=== PATIENT | male | born 1945 | race Caucasian/White ===

== ENCOUNTER 2019-06-12 09:45 | Emergency (ER) | payer MEDICARE ==
--- NOTE | 2019-06-12 10:17 | ED ---
General Adult HPI - General Chief complaint: Urogenital Stated complaint: catheter problem Time Seen by Provider: 06/12/19 10:02 Source: patient, RN notes reviewed, old records reviewed Mode of arrival: ambulatory Limitations: no limitations - History of Present Illness Initial comments: 73-year-old male patient with past history of hypertension, benign prostate hypertrophy presents to ED for chief complaint of bladder pain. Patient reports that last Wednesday he had a indwelling catheter place due to urinary retention believed to be from enlarged prostate. Patient reports that last 2 days he has been having spasm discomfort around his bladder region. Also small amount of urine leaking from around insertion of catheter. Reports normal amount of d ischarge from catheter and bag. Denies any other complaints at this time. Systemic: Pt denies fatigue, fever/chills, rash. Pt denies weakness, night sweats, weight loss. Neuro: Pt denies headache, visual disturbances, syncope or pre-syncope. HEENT: Pt denies ocular discharge or irritation, otalgia, rhinorrhea, pharyngitis or notable lymphadenopathy. Cardiopulmonary: Pt denies chest pain, SOB, heart palpitations, dyspnea on exertion. Abdominal/GI: Pt denies abdominal pain, n/v/d. : Pt denies dysuria, burning w/ urination, frequency/urgency. Denies new onset urinary or bowel incontinence. MSK: Pt denies myalgia, loss of strength or function in extremities. Neuro: Pt denies new onset weakness, paresthesias. - Related Data Previous Rx's Medication Instructions Recorded Cephalexin [Keflex] 500 mg PO Q6HR 10 Days #40 cap 06/12/19 Allergies Allergy/AdvReac Type Severity Reaction Status Date / Time No Known Allergies Allergy Verified 06/12/19 09:55 Review of Systems ROS Statement: Those systems with pertinent positive or pertinent negative responses have been documented in the HPI. ROS Other: All systems not noted in ROS Statement are negative. Past Medical History Past Medical History: Hypertension History of Any Multi-Drug Resistant Organisms: None Reported Past Surgical History: No Surgical Hx Reported Past Psychological History: Anxiety Smoking Status: Former smoker Past Alcohol Use History: None Reported Past Drug Use History: None Reported General Exam - General Exam Comments Initial Comments: Constitutional: NAD, AOX3, Pt has pleasant affect. HEENT: NC/AT, trachea midline, neck supple, no lymphadenopathy. Posterior pharyn x non erythematous, without exudates. External ears appear normal, without discharge. Mucous membranes moist. Eyes PERRLA, EOM intact. There is no scleral icterus. No pallor noted. Cardiopulmonary: RRR, no murmurs, rubs or gallops, no JVD noted. Lungs CTAB in anterior and posterior lynn. No peripheral edema. Abdominal exam: Abdomen soft and non-distended. Abdomen non-tender to palpation in all 4 quadrants. Bowel sounds active in LLQ. No hepatosplenomegaly. No ecchymosis Neuro: CN II-XII grossly intact. No nuchal rigidity. No raccon eyes, no diaz sign, no hemotympanum. No cervical spinal tenderness. MSK: No posterior calf tenderness bilaterally, homans sign negative bilaterally. Posterior tibialis and radial pulse +2 bilaterally. Sensation intact in upper and lower extremities. Full active ROM in upper and lower extremities, 5/5 stregnth. gu: Catheter insertion site examined, no erythema. Limitations: no limitations Course Vital Signs 06/12/19 06/12/19 09:50 12:00 Temperature 98.8 F 98.6 F Pulse Rate 108 H 93 Respiratory 18 20 Rate Blood Pressure 152/82 O2 Sat by Pulse 98 95 Oximetry Medical Decision Making - Medical Decision Making 73-year-old male patient with past history of hypertension, benign prostate hypertrophy presents to ED for chief complaint of bladder pain. Patient reports that last Wednesday he had a indwelling catheter place due to urinary retention believed to be from enlarged prostate. Patient reports that last 2 days he has been having spasm discomfort around his bladder region. Also small amount of urine leaking from around insertion of catheter. Reports normal amount of discharge from catheter and bag. Denies any other complaints at this time. Patient vital signs stable, afebrile. Physical exam displayed signs of infection around catheter. Laboratory investigations revealed mild leukocytosis of 12.0, UA displayed hematuria, 78 white blood cells, nitrate positive, large esterase. Patient is a 1 g of Rocephin. The Moseley catheter was removed. Patient was able to spontaneously void after catheter removal. Recommended reinsertion of Moseley catheter and to follow-up, patient refused. Patient will be discharged with antibiotics and will follow up with urology as scheduled on . Will return to ER if ocndition worsens. Case discussed with Dr. Sorenson. - Lab Data Result diagrams: 06/12/19 11:30 06/12/19 11:30 Lab Results 06/12/19 06/12/19 06/12/19 Range/Units 10:30 11:30 11:30 WBC 12.0 H (3.8-10.6) k/uL RBC 4.74 (4.30-5.90) m/uL Hgb 14.9 (13.0-17.5) gm/dL Hct 44.2 (39.0-53.0) % MCV 93.3 (80.0-100.0) fL MCH 31.4 (25.0-35.0) pg MCHC 33.7 (31.0-37.0) g/dL RDW 12.4 (11.5-15.5) % Plt Count 240 (150-450) k/uL Neutrophils % 85 % Lymphocytes % 8 % Monocytes % 4 % Eosinophils % 2 % Basophils % 0 % Neutrophils # 10.2 H (1.3-7.7) k/uL Lymphocytes # 1.0 (1.0-4.8) k/uL Monocytes # 0.5 (0-1.0) k/uL Eosinophils # 0.2 (0-0.7) k/uL Basophils # 0.0 (0-0.2) k/uL Sodium 141 (137-145) mmol/L Potassium 4.5 (3.5-5.1) mmol/L Chloride 104 (98-107) mmol/L Carbon Dioxide 27 (22-30) mmol/L Anion Gap 10 mmol/L BUN 20 (9-20) mg/dL Creatinine 0.70 (0.66-1.25) mg/dL Est GFR (CKD-EPI)AfAm >90 (>60 ml/min/1.73 sqM) Est GFR (CKD-EPI)NonAf >90 (>60 ml/min/1.73 sqM) Glucose 95 (74-99) mg/dL Plasma Lactic Acid Frank (0.7-2.0) mmol/L Calcium 9.7 (8.4-10.2) mg/dL Total Bilirubin 0.6 (0.2-1.3) mg/dL AST 41 (17-59) U/L ALT 26 (4-49) U/L Alkaline Phosphatase 71 (38-126) U/L Total Protein 7.7 (6.3-8.2) g/dL Albumin 4.8 (3.5-5.0) g/dL Urine Color Yellow Urine Appearance Cloudy (Clear) Urine pH 6.0 (5.0-8.0) Ur Specific Jackson 1.019 (1.001-1.035) Urine Protein 1+ H (Negative) Urine Glucose (UA) Negative (Negative) Urine Ketones Negative (Negative) Urine Blood Moderate H (Negative) Urine Nitrite Positive (Negative) Urine Bilirubin Negative (Negative) Urine Urobilinogen <2.0 (<2.0) mg/dL Ur Leukocyte Esterase Large H (Negative) Urine RBC >182 H (0-5) /hpf Urine WBC 78 H (0-5) /hpf Urine Bacteria Few H (None) /hpf Urine Mucus Rare H (None) /hpf 06/12/19 Range/Units 11:30 WBC (3.8-10.6) k/uL RBC (4.30-5.90) m/uL Hgb (13.0-17.5) gm/dL Hct (39.0-53.0) % MCV (80.0-100.0) fL MCH (25.0-35.0) pg MCHC (31.0-37.0) g/dL RDW (11.5-15.5) % Plt Count (150-450) k/uL Neutrophils % % Lymphocytes % % Monocytes % % Eosinophils % % Basophils % % Neutrophils # (1.3-7.7) k/uL Lymphocytes # (1.0-4.8) k/uL Monocytes # (0-1.0) k/uL Eosinophils # (0-0.7) k/uL Basophils # (0-0.2) k/uL Sodium (137-145) mmol/L Potassium (3.5-5.1) mmol/L Chloride (98-107) mmol/L Carbon Dioxide (22-30) mmol/L Anion Gap mmol/L BUN (9-20) mg/dL Creatinine (0.66-1.25) mg/dL Est GFR (CKD-EPI)AfAm (>60 ml/min/1.73 sqM) Est GFR (CKD-EPI)NonAf (>60 ml/min/1.73 sqM) Glucose (74-99) mg/dL Plasma Lactic Acid Frank 0.9 (0.7-2.0) mmol/L Calcium (8.4-10.2) mg/dL Total Bilirubin (0.2-1.3) mg/dL AST (17-59) U/L ALT (4-49) U/L Alkaline Phosphatase (38-126) U/L Total Protein (6.3-8.2) g/dL Albumin (3.5-5.0) g/dL Urine Color Urine Appearance (Clear) Urine pH (5.0-8.0) Ur Specific Jackson (1.001-1.035) Urine Protein (Negative) Urine Glucose (UA) (Negative) Urine Ketones (Negative) Urine Blood (Negative) Urine Nitrite (Negative) Urine Bilirubin (Negative) Urine Urobilinogen (<2.0) mg/dL Ur Leukocyte Esterase (Negative) Urine RBC (0-5) /hpf Urine WBC (0-5) /hpf Urine Bacteria (None) /hpf Urine Mucus (None) /hpf Disposition Clinical Impression: UTI (urinary tract infection) Disposition: HOME SELF-CARE Condition: Stable Instructions (If sedation given, give patient instructions): Urinary Tract Infection in Men (ED) Additional Instructions: Take antibiotics as directed. Follow up with urologist as scheduled. Return to ER if condition worsens in any way. Prescriptions: Cephalexin [Keflex] 500 mg PO Q6HR 10 Days #40 cap Is patient prescribed a controlled substance at d/c from ED?: No Referrals: Jami Stover MD [Primary Care Provider] - 1-2 days
[2019-06-12 11:00] LABS: Appearance,Urine Cloudy (Clear); Bacteria,Urine Few /hpf; Bilirubin,Urine Negative (Negative); Blood,Urine Moderate (Negative); Color,Urine Yellow; Glucose,Urine (UA) Negative (Negative); Ketones,Urine Negative (Negative); Leukocyte Esterase,Urine Large (Negative); Mucus,Urine Rare /hpf; Nitrite,Urine Positive (Negative); Protein,Urine 1+ (Negative); RBC,Urine >182 /hpf (0-5); Specific Gravity,Urine 1.019 (1.001-1.035); Urobilinogen,Urine <2.0 mg/dL (<2.0); WBC,Urine 78 /hpf (0-5)
[2019-06-12] MEDS ORDERED: SODIUM CHLORIDE 0.9% 1,000 ML IV STA (11:11)
[2019-06-12 11:53] LABS: Basophils % (A) 0 %; Eosinophils # (A) 0.2 k/uL (0-0.7); Eosinophils % (A) 2 %; HCT 44.2 % (39.0-53.0); HGB 14.9 gm/dL (13.0-17.5); Lymphocytes % (A) 8 %; MCH 31.4 pg (25.0-35.0); MCHC 33.7 g/dL (31.0-37.0); MCV 93.3 fL (80.0-100.0); Monocytes # (A) 0.5 k/uL (0-1.0); Monocytes % (A) 4 %; Neutrophils # (A) 10.2 k/uL (1.3-7.7); Neutrophils % (A) 85 %; Platelet Count 240 k/uL (150-450); RBC 4.74 m/uL (4.30-5.90); RDW 12.4 % (11.5-15.5)
[2019-06-12 12:09] LABS: ALT 26 U/L (4-49); AST 41 U/L (17-59); African American GFR (CKD) >90 (>60 ml/min/1.73 sqM); Albumin 4.8 g/dL (3.5-5.0); Alkaline Phosphatase 71 U/L (38-126); Anion Gap 10 mmol/L; Blood Urea Nitrogen 20 mg/dL (9-20); Calcium 9.7 mg/dL (8.4-10.2); Carbon Dioxide 27 mmol/L (22-30); Chloride 104 mmol/L (98-107); Glucose 95 mg/dL (74-99); Non-African American GFR(CKD) >90 (>60 ml/min/1.73 sqM); Potassium 4.5 mmol/L (3.5-5.1); Sodium 141 mmol/L (137-145); Total Bilirubin 0.6 mg/dL (0.2-1.3); Total Protein 7.7 g/dL (6.3-8.2)
[2019-06-12 12:29] VITALS: TEMP 98.6
[2019-06-12 12:53] VITALS: BP 151/78; PULSE 94; RESP 18
== END 2019-06-12 12:56 | disposition home or self-care (01) ==
LOC: EC 09:45
DX: N39.0 Urinary tract infection, site not specified (principal); N40.1 Benign prostatic hyperplasia with lower urinary tract symptoms; I10 Essential (primary) hypertension; T83.038A Leakage of other urinary catheter, initial encounter; F41.9 Anxiety disorder, unspecified; Z87.891 Personal history of nicotine dependence
CPT/HCPCS: 36415; 80053; 83605; 85025; 81001; 87086; 87077; 87186; 99284; 96365; 96361; J0696

== ENCOUNTER 2019-06-12 16:47 | Observation (INO) | payer MEDICARE ==
[2019-06-12] MEDS ORDERED: SODIUM CHLORIDE 0.9% 1,000 ML IV ONE (17:53)
[2019-06-12] MEDS ORDERED: NALOXONE 0.4 MG/ML 1 ML VIAL IV PRN (18:01)
[2019-06-12] MEDS ORDERED: ACETAMINOPHEN TAB 325 MG TAB PO STA (18:01)
[2019-06-12] MEDS ORDERED: SODIUM CHLORIDE 0.9% 500 ML 500 ML IV ONE (18:01)
[2019-06-12] MEDS ORDERED: IBUPROFEN 400 MG TAB PO PRN (18:01)
[2019-06-12] MEDS ORDERED: ACETAMINOPHEN TAB 325 MG TAB PO PRN (18:01)
[2019-06-12] MEDS ORDERED: cefTRIAXone IN SWFI 1,000 MG/10 ML SYRINGE IVP STA (18:01)
--- NOTE | 2019-06-12 18:03 | ED ---
Male Urogenital HPI - General Source: patient Mode of arrival: ambulatory Limitations: no limitations <Ashlee Wolff - Last Filed: 06/12/19 19:51> <Evans Maldonadoah Liliana - Last Filed: 06/19/19 00:53> - General Chief complaint: Urogenital Stated complaint: recheck - abn labs, UTI Time Seen by Provider: 06/12/19 17:52 - History of Present Illness Initial comments: 73-year-old male who has history of prostate disease on Flomax presents emergency department today for chief complaint of fever with recent diagnosis of urinary tract infection. Patient states he presents emergency department today after having what he describes as bladder spasms he states he's been ongoing since the placement of his catheter earlier this week secondary to urinary retention which was believed to be due to prostate. Patient states the catheter was removed and he was voiding spontaneously throughout the day since his discharge from the hospital however patient developed a fever of 103F, was concerned presents emergency department for reevaluation. Patient denies any abdominal pain he states the spasms in the bladder have subsided. Patient denies any back or flank pain or history of kidney stones. Patient does admit to dysuria urgency or frequency. Patient states he feels this is associated with the recent catheter removal. Remaining review of system negative patient denies any cough upper respiratory symptoms vomiting diarrhea chest pain or SOB. Upon arrival patient does not appear toxic overtly but is found to be febrile with elevation of HR. Urine culture from earlier pending, given 1 g rocephin earlier today as well. (Ashlee Wolff) - Related Data Home Medications Medication Instructions Recorded Confirmed Cholecalciferol [Vitamin D3 (25 1,000 unit PO DAILY 06/12/19 06/12/19 Mcg = 1000 Iu)] Glucosamine Sulfate 500 mg PO DAILY 06/12/19 06/12/19 Multivitamins, Thera [Multivitamin 1 tab PO DAILY 06/12/19 06/12/19 (formulary)] [place]-3 Fatty Acids/Fish Oil [Fish 1 cap PO DAILY 06/12/19 06/12/19 Oil 1,000 mg Softgel] Tamsulosin HCl [Flomax] 0.4 mg PO HS 06/12/19 06/12/19 Previous Rx's Medication Instructions Recorded Cefuroxime Axetil [Ceftin] 500 mg PO BID 5 Days #10 tab 06/13/19 Enalapril [Vasotec] 10 mg PO DAILY #0 06/13/19 Allergies Allergy/AdvReac Type Severity Reaction Status Date / Time No Known Allergies Allergy Verified 06/12/19 18:32 Review of Systems ROS Other: All systems not noted in ROS Statement are negative. <Ashlee Wolff Zaid - Last Filed: 06/12/19 19:51> ROS Other: All systems not noted in ROS Statement are negative. <Maura Maldonado Liliana - Last Filed: 06/19/19 00:53> ROS Statement: Those systems with pertinent positive or pertinent negative responses have been documented in the HPI. Past Medical History Past Medical History: Hypertension History of Any Multi-Drug Resistant Organisms: None Reported Past Surgical History: No Surgical Hx Reported Past Psychological History: Anxiety Smoking Status: Former smoker Past Alcohol Use History: None Reported Past Drug Use History: None Reported <Ashlee Wolff Zaid - Last Filed: 06/12/19 19:51> General Exam Limitations: no limitations <Ashlee Wolff Zaid - Last Filed: 06/12/19 19:51> - General Exam Comments Initial Comments: General: The patient is awake and alert, in no distress, and does not appear acutely ill. Eye: +3 mm pupils are equal, round and reactive to light, extra-ocular movements are intact. No nystagmus. There is normal conjunctiva bilaterally. No signs of icterus. Ears, nose, mouth and throat: There are moist mucous membranes and no oral lesions. Neck: The neck is supple, there is no tenderness or JVD. Cardiovascular: There is a regular rate and rhythm. No murmur, rub or gallop is appreciated. Respiratory: Lungs are clear to auscultation, respirations are non-labored, br eath sounds are equal. No wheezes, stridor, rales, or rhonchi. Gastrointestinal: Soft, non-distended, non-tender abdomen without masses or organomegaly noted. There is no rebound or guarding present. Musculoskeletal: Normal ROM, no tenderness. Strength 5/5. Sensation intact. Radial pulses equal bilaterally 2+. Neurological: A&O x 3. CN II-XII intact grossly, There are no obvious motor or sensory deficits. Coordination appears grossly intact. Speech is normal. Skin: Skin is warm and dry and no rashes or lesions are noted. Psychiatric: Cooperative, appropriate mood & affect, normal judgment. (Ashlee Wolff) Course Vital Signs 06/12/19 06/12/19 06/12/19 17:04 18:20 19:00 Temperature 102.0 F H 99.3 F Pulse Rate 115 H 111 H 100 Respiratory 18 20 18 Rate Blood Pressure 126/73 151/82 151/82 O2 Sat by Pulse 96 96 Oximetry Medical Decision Making <Ashlee Wolff - Last Filed: 06/12/19 19:51> - Lab Data Result diagrams: 06/13/19 08:32 06/13/19 08:32 <Maura Maldonado - Last Filed: 06/19/19 00:53> - Medical Decision Making 73-year-old male presenting for fever recently diagnosed or new tract infection patient recently had a Moseley catheter for urinary retention which she believes may be due to his prostate. Patient returns this afternoon with fever. Elevated heart rate. Concern for developing urosepsis. Patient was given Rocephin earlier in the day. 1 g urine cultures pending. Patient is given IV fluids I obtained blood cultures lactic acid. Patient will be admitted for IV antibiotics, monitoring on tele. Otherwise patient appears well no distress. Dr. Maldonado agreeable to care plan and admission. (Ashlee Wolff) I was available for consultation in the emergency department. The history and physical exam were done by the midlevel provider. I was consulted for this [facility] care. I reviewed the case with the midlevel provider and based on their presentation of the patient, I agree with the assessment, medical decision making and plan of care as documented. Chart was dictated using [employer] dictation software. Attempts were made to correct any dictation errors however some typographical errors may persist. (Maura Maldonado) Disposition Is patient prescribed a controlled substance at d/c from ED?: No Time of Disposition: 18:30 Decision to Admit Reason: Admit from EC Decision Date: 06/12/19 Decision Time: 18:30 <Ashlee Wolff - Last Filed: 06/12/19 19:51> <Maura Maldonado - Last Filed: 06/19/19 00:53> Clinical Impression: UTI (urinary tract infection), Fever, Tachycardia Disposition: ADMITTED IP TO THIS HOSP Condition: Stable
[2019-06-12] MEDS ORDERED: LORazepam 0.5 MG TAB PO STA (22:09)
[2019-06-12] MEDS ORDERED: TAMSULOSIN 0.4 MG CAP.ER.24H PO SCH (22:15)
[2019-06-12] MEDS: SODIUM CHLORIDE 0.9% 1,000 ML IV SCH (22:28)
[2019-06-13 01:51] VITALS: RESP 18
[2019-06-13] MEDS: SODIUM CHLORIDE 0.9% 1,000 ML IV SCH (04:29)
[2019-06-13 07:57] VITALS: BP 118/72; PULSE 64; TEMP 97.9
[2019-06-13] MEDS ORDERED: MULTIVITAMINS, THERA 1 EACH TAB PO SCH (09:00)
[2019-06-13] MEDS ORDERED: NON FORMULARY DRUG (Omega-3 Fatty Acids/Fish Oil [Fish Oil 1,000 Mg Softgel] 1 CAP) PO SCH (09:00)
[2019-06-13] MEDS ORDERED: GLUCOSAMINE SULFATE 500 MG PO SCH (09:00)
[2019-06-13] MEDS ORDERED: LISINOPRIL 20 MG TAB PO SCH (09:00)
[2019-06-13] MEDS ORDERED: CHOLECALCIFEROL 1,000 UNIT TAB PO SCH (09:00)
[2019-06-13 09:22] LABS: African American GFR (CKD) >90 (>60 ml/min/1.73 sqM); Anion Gap 5 mmol/L; Blood Urea Nitrogen 14 mg/dL (9-20); Calcium 8.7 mg/dL (8.4-10.2); Carbon Dioxide 26 mmol/L (22-30); Chloride 109 mmol/L (98-107); Glucose 105 mg/dL (74-99); Non-African American GFR(CKD) >90 (>60 ml/min/1.73 sqM); Potassium 3.8 mmol/L (3.5-5.1); Sodium 140 mmol/L (137-145)
[2019-06-13 09:42] LABS: Basophils % (A) 0 %; Eosinophils # (A) 0.1 k/uL (0-0.7); Eosinophils % (A) 1 %; HCT 39.2 % (39.0-53.0); HGB 12.9 gm/dL (13.0-17.5); Lymphocytes # (A) 1.2 k/uL (1.0-4.8); Lymphocytes % (A) 12 %; MCH 31.1 pg (25.0-35.0); MCV 94.2 fL (80.0-100.0); Mean Platelet Volume 7.2; Monocytes # (A) 0.4 k/uL (0-1.0); Monocytes % (A) 4 %; Neutrophils # (A) 8.3 k/uL (1.3-7.7); Neutrophils % (A) 82 %; Platelet Count 165 k/uL (150-450); RBC 4.17 m/uL (4.30-5.90); RDW 12.4 % (11.5-15.5); WBC 10.1 k/uL (3.8-10.6)
--- NOTE | 2019-06-13 13:44 | P.GSCN ---
History of Present Illness Consult date: 06/13/19 Reason for Consult: urinary retention History of present illness: Mr Serrano is a 73-year-old male admitted to the hospital febrile UTI. He rece ntly had a Espinoza catheter placed for urinary retention and was subsequently removed yesterday, and was able to void without difficulty. initially was able to void without difficulty, but then he started noticing bladder spasms and fever of 103. He presented back to the ER at that point was noticed to be in retention, his PVR is unknown but a Espinoza catheter was placed. He was started on antibiotic and admitted to the floor. He has a long history of BPH and has been on Flomax for the last 15 years. He indicated prior to this episode of retention he's been voiding without difficulties with a decent stream without straining no previous history of retention with history of a UTI prior to this one. Denies any surgeries. Review of Systems - Constitutional Reports chills, Reports fever - Cardiovascular Denies chest pain, Denies dyspnea on exertion, Denies leg edema - Respiratory Denies cough, Denies dyspnea - Genitourinary Reports dysuria, Denies flank pain, Denies hematuria - Neurological Denies confusion, Denies weakness - Endocrine Denies fatigue Past Medical History Past Medical History: Hypertension, Supraventricular Tachycardia (SVT) Additional Past Medical History / Comment(s): BPH, ESPINOZA CATHETER INSERTED 06/06/19 FOR RETENTION AND DISCONTINUED AT [facility] eR 06/12/2019 AM. History of Any Multi-Drug Resistant Organisms: None Reported Past Surgical History: No Surgical Hx Reported Past Anesthesia/Blood Transfusion Reactions: No Reported Reaction Past Psychological History: Anxiety Smoking Status: Former smoker Past Alcohol Use History: None Reported Past Drug Use History: None Reported - Past Family History Father Additional Family Medical History / Comment(s): PROSTATE PROBLEMS. Mother Family Medical History: Cancer Additional Family Medical History / Comment(s): LIVER CANCER Medications and Allergies Home Medications Medication Instructions Recorded Confirmed Type Cholecalciferol [Vitamin D3 (25 1,000 unit PO DAILY 06/12/19 06/12/19 History Mcg = 1000 Iu)] Enalapril [Vasotec] 20 mg PO DAILY 06/12/19 06/12/19 History Multivitamins, Thera [Multivitamin 1 tab PO DAILY 06/12/19 06/12/19 History (formulary)] [place]-3 Fatty Acids/Fish Oil [Fish 1 cap PO DAILY 06/12/19 06/12/19 History Oil 1,000 mg Softgel] RX: Glucosamine Sulfate 500 mg PO DAILY 06/12/19 06/12/19 History Tamsulosin HCl [Flomax] 0.4 mg PO HS 06/12/19 06/12/19 History Allergies Allergy/AdvReac Type Severity Reaction Status Date / Time No Known Allergies Allergy Verified 06/12/19 18:32 Surgical - Exam Vital Signs Temp Pulse Resp BP Pulse Ox 102.0 F H 115 H 18 126/73 96 06/12/19 17:04 06/12/19 17:04 06/12/19 17:04 06/12/19 17:04 06/12/19 17:04 - General well developed, well nourished, no distress - ENT normal nares, normal mucosa - Respiratory normal expansion, normal respiratory effort - Abdomen Abdomen: soft, non tender, no distended - Genitourinary normal penis with no external lesions - Psychiatric oriented to time, oriented to person, oriented to place Results - Labs 06/13/19 08:32 06/13/19 08:32 Abnormal Lab Results - Last 24 Hours (Table) 06/13/19 06/13/19 Range/Units 08:32 08:32 RBC 4.17 L (4.30-5.90) m/uL Hgb 12.9 L (13.0-17.5) gm/dL Neutrophils # 8.3 H (1.3-7.7) k/uL Chloride 109 H (98-107) mmol/L Creatinine 0.63 L (0.66-1.25) mg/dL Glucose 105 H (74-99) mg/dL Diabetes panel 06/13/19 Range/Units 08:32 Sodium 140 (137-145) mmol/L Potassium 3.8 (3.5-5.1) mmol/L Chloride 109 H (98-107) mmol/L Carbon Dioxide 26 (22-30) mmol/L BUN 14 (9-20) mg/dL Creatinine 0.63 L (0.66-1.25) mg/dL Glucose 105 H (74-99) mg/dL Calcium 8.7 (8.4-10.2) mg/dL Calcium panel 06/13/19 Range/Units 08:32 Calcium 8.7 (8.4-10.2) mg/dL Pituitary panel 06/13/19 Range/Units 08:32 Sodium 140 (137-145) mmol/L Potassium 3.8 (3.5-5.1) mmol/L Chloride 109 H (98-107) mmol/L Carbon Dioxide 26 (22-30) mmol/L BUN 14 (9-20) mg/dL Creatinine 0.63 L (0.66-1.25) mg/dL Glucose 105 H (74-99) mg/dL Calcium 8.7 (8.4-10.2) mg/dL Adrenal panel 06/13/19 Range/Units 08:32 Sodium 140 (137-145) mmol/L Potassium 3.8 (3.5-5.1) mmol/L Chloride 109 H (98-107) mmol/L Carbon Dioxide 26 (22-30) mmol/L BUN 14 (9-20) mg/dL Creatinine 0.63 L (0.66-1.25) mg/dL Glucose 105 H (74-99) mg/dL Calcium 8.7 (8.4-10.2) mg/dL Assessment and Plan Assessment: 73-year-old male recent catheter placed for urinary retention, initially passed trial of void but had difficulty voiding. Admitted from the ER for febrile UTI, and urinary retention. The Espinoza catheter was reinserted overnight. Has a long-standing history of BPH is on Flomax at baseline Plan: -keep Espinoza catheter in for at least 7-10 days can follow-up as an outpatient for trial of void -Increase his Flomax from 0.4 to 0.8 daily
--- NOTE | 2019-06-13 15:56 | P.HPIM ---
History of Present Illness 73-year-old pleasant male came in because of fever. Patient is found to have urinary tract infection patient does have symptoms of dysuria. Patient had multiple such episodes patient the had a Espinoza catheter that was placed for uri nary retention subsequently will be removed and patient was sent home and patient started having bladder spasms and fever of 103 within 2 chills. Urology evaluated the patient is fully catheter was replaced back and abdominal follow the patient as an outpatient regarding his urinary tract infection I do not have any cultures available at this time patient was started on Rocephin significant improved with Rocephin patient says he has Keflex at home. As Keflex is not a broad-spectrum mild discharge him on Ceftin as I do not know the cultures and studies I will follow the cultures and studies tomorrow for need to change antibiotics we'll change and will give a call to the patient. Patient is insisting on going home because of Son Rupal. Patient is afebrile today. Review of Systems REVIEW OF SYSTEMS: CONSTITUTIONAL: No fever, no malaise, no fatigue. HEENT: No recent visual problems or hearing problems. Denied any sore throat. CARDIOVASCULAR: No chest pain, orthopnea, PND, no palpitations, no syncope. PULMONARY: No shortness of breath, no cough, no hemoptysis. GASTROINTESTINAL: No diarrhea, no nausea, no vomiting, no abdominal pain. NEUROLOGICAL: No headaches, no weakness, no numbness. HEMATOLOGICAL: Denies any bleeding or petechiae. GENITOURINARY: As mentioned in HPI MUSCULOSKELETAL/RHEUMATOLOGICAL: Denies any joint pain, swelling, or any muscle pain. ENDOCRINE: Denies any polyuria or polydipsia. The rest of the 14-point review of systems is negative. Past Medical History Past Medical History: Hypertension, Supraventricular Tachycardia (SVT) Additional Past Medical History / Comment(s): BPH, ESPINOZA CATHETER INSERTED 06/06/19 FOR RETENTION AND DISCONTINUED AT [facility] 06/12/2019 AM. History of Any Multi-Drug Resistant Organisms: None Reported Past Surgical History: No Surgical Hx Reported Past Anesthesia/Blood Transfusion Reactions: No Reported Reaction Past Psychological History: Anxiety Smoking Status: Former smoker Past Alcohol Use History: None Reported Past Drug Use History: None Reported - Past Family History Father Additional Family Medical History / Comment(s): PROSTATE PROBLEMS. Mother Family Medical History: Cancer Additional Family Medical History / Comment(s): LIVER CANCER Medications and Allergies Home Medications Medication Instructions Recorded Confirmed Type Cholecalciferol [Vitamin D3 (25 1,000 unit PO DAILY 06/12/19 06/12/19 History Mcg = 1000 Iu)] Glucosamine Sulfate 500 mg PO DAILY 06/12/19 06/12/19 History Multivitamins, Thera [Multivitamin 1 tab PO DAILY 06/12/19 06/12/19 History (formulary)] [place]-3 Fatty Acids/Fish Oil [Fish 1 cap PO DAILY 06/12/19 06/12/19 History Oil 1,000 mg Softgel] Tamsulosin HCl [Flomax] 0.4 mg PO HS 06/12/19 06/12/19 History Cefuroxime Axetil [Ceftin] 500 mg PO BID 5 Days #10 tab 06/13/19 Rx Enalapril [Vasotec] 10 mg PO DAILY #0 06/13/19 06/12/19 Rx Allergies Allergy/AdvReac Type Severity Reaction Status Date / Time No Known Allergies Allergy Verified 06/12/19 18:32 Physical Exam Vitals: Vital Signs Temp Pulse Pulse Resp BP BP Pulse Ox 06/13/19 07:00 97.9 F 64 18 118/72 95 06/13/19 01:50 98.6 F 87 18 111/61 96 06/12/19 21:00 98.4 F 94 20 169/93 95 06/12/19 19:00 99.3 F 100 18 151/82 96 06/12/19 18:20 111 H 20 151/82 06/12/19 17:04 102.0 F H 115 H 18 126/73 96 Intake and Output 06/13/19 06/13/19 06/13/19 06:59 14:59 22:59 Intake Total 350 Output Total 1000 1000 Balance -650 -1000 Intake: Oral 350 Output: Urine 1000 1000 Other: Voiding Method Indwelling Catheter PHYSICAL EXAMINATION: GENERAL: The patient is alert and oriented x3, not in any acute distress. Well developed, well nourished. HEENT: Pupils are round and equally reacting to light. EOMI. No scleral icterus. No conjunctival pallor. Normocephalic, atraumatic. No pharyngeal erythema. No thyromegaly. CARDIOVASCULAR: S1 and S2 present. No murmurs, rubs, or gallops. PULMONARY: Chest is clear to auscultation, no wheezing or crackles. ABDOMEN: Soft, nontender, nondistended, normoactive bowel sounds. No palpable organomegaly. MUSCULOSKELETAL: No joint swelling or deformity. EXTREMITIES: No cyanosis, clubbing, or pedal edema. Has a Espinoza catheter in place which is draining well NEUROLOGICAL: Gross neurological examination did not reveal any focal deficits. SKIN: No rashes. Results CBC & Chem 7: 06/13/19 08:32 06/13/19 08:32 Labs: Abnormal Lab Results - Last 24 Hours (Table) 06/13/19 06/13/19 Range/Units 08:32 08:32 RBC 4.17 L (4.30-5.90) m/uL Hgb 12.9 L (13.0-17.5) gm/dL Neutrophils # 8.3 H (1.3-7.7) k/uL Chloride 109 H (98-107) mmol/L Creatinine 0.63 L (0.66-1.25) mg/dL Glucose 105 H (74-99) mg/dL Thrombosis Risk Factor Assmnt - Choose All That Apply Any of the Below Risk Factors Present?: No Other Risk Factors: Yes Each Risk Factor Represents 2 Points: Age 61-74 years Other congenital or acquired thrombophilia - If yes, enter type in comment: No Thrombosis Risk Factor Assessment Total Risk Factor Score: 2 Thrombosis Risk Factor Assessment Level: Low Risk Assessment and Plan Plan: -Urinary retention: Patient will be evaluated as an outpatient for urinary retention patient has a long-standing benign prostatic hypertrophy for which patient is on Flomax which will be continued -Sepsis secondary to urinary tract infection for which patient will be discharged on Ceftin and I will follow up on the urine cultures tomorrow and if needed will change antibiotics accordingly -Hypertension -History of super ventricular tachycardia and -Anxiety disorder
--- NOTE | 2019-06-13 15:56 | P.DS ---
Providers Date of admission: 06/12/19 18:26 Attending physician: Kavita Jones Consults: 06/12/19 22:06 Consult Physician Routine Consulting Provider: Peña Sweeney Consult Reason/Comments: urinary retention Do you want consulting provider notified?: Yes, Notify in am Primary care physician: Jami Stover [facility] Course: Please refer to my history of present illness for further details Patient Condition at Discharge: Stable Plan - Discharge Summary Discharge Rx Participant: No New Discharge Prescriptions: New Cefuroxime Axetil [Ceftin] 500 mg PO BID 5 Days #10 tab Continue Tamsulosin HCl [Flomax] 0.4 mg PO HS [place]-3 Fatty Acids/Fish Oil [Fish Oil 1,000 mg Softgel] 1 cap PO DAILY Multivitamins, Thera [Multivitamin (formulary)] 1 tab PO DAILY Glucosamine Sulfate 500 mg PO DAILY Cholecalciferol [Vitamin D3 (25 Mcg = 1000 Iu)] 1,000 unit PO DAILY Changed Enalapril [Vasotec] 10 mg PO DAILY #0 Discharge Medication List Cholecalciferol [Vitamin D3 (25 Mcg = 1000 Iu)] 1,000 unit PO DAILY 06/12/19 [History] Glucosamine Sulfate 500 mg PO DAILY 06/12/19 [History] Multivitamins, Thera [Multivitamin (formulary)] 1 tab PO DAILY 06/12/19 [History] [place]-3 Fatty Acids/Fish Oil [Fish Oil 1,000 mg Softgel] 1 cap PO DAILY 06/12/19 [History] Tamsulosin HCl [Flomax] 0.4 mg PO HS 06/12/19 [History] Cefuroxime Axetil [Ceftin] 500 mg PO BID 5 Days #10 tab 06/13/19 [Rx] Enalapril [Vasotec] 10 mg PO DAILY #0 06/13/19 [Rx] Follow up Appointment(s)/Referral(s): Jami Stover MD [Primary Care Provider] - 3 Days Zhen Oviedo MD [STAFF PHYSICIAN] - 06/15/19 Patient Instructions/Handouts: Urinary Tract Infection in Men (DC) Activity/Diet/Wound Care/Special Instructions: activity as tolerated regular diet as tolerated indwelling huston catheter inserted 06/12/19 Discharge Disposition: HOME SELF-CARE
== END 2019-06-13 17:06 | disposition home or self-care (01) ==
LOC: EC 16:47 → 6NMEDSUR 18:26
PROVIDERS: ADMIT Hospitalist; ATTEND Hospitalist
DX: A41.9 Sepsis, unspecified organism (principal); N39.0 Urinary tract infection, site not specified; F41.9 Anxiety disorder, unspecified; I10 Essential (primary) hypertension; N32.89 Other specified disorders of bladder; N40.1 Benign prostatic hyperplasia with lower urinary tract symptoms; R33.8 Other retention of urine; Z80.0 Family history of malignant neoplasm of digestive organs; Z87.891 Personal history of nicotine dependence; Z79.899 Other long term (current) drug therapy
CPT/HCPCS: 51701; 96361 ×2; 96365; 99284; 36415; 80048; 83605; 85025; 87040; 87077; 87186; G0378 ×2; J0696

== ENCOUNTER 2019-06-19 16:45 | Emergency (ER) | payer MEDICARE ==
--- NOTE | 2019-06-19 17:32 | ED ---
Male Urogenital HPI - General Stated complaint: Not able to urinate Time Seen by Provider: 06/19/19 17:32 - History of Present Illness Initial comments: Patient is a 73-year-old male presenting to emergency Department with complaints of urinary retention since this morning. Patient has had a catheter in for a few days and then was pulled out today by his urologist, Dr. Roy. Patient states he's been unable to urinate since this morning. Patient is having some lower abdominal discomfort secondary to the retention. Patient denies fever, chills, nausea, vomiting. He has no other complaints at this time. Upon arrival to the ER, his vital signs are stable. - Related Data Home Medications Medication Instructions Recorded Confirmed Cholecalciferol [Vitamin D3 (25 1,000 unit PO DAILY 06/12/19 06/12/19 Mcg = 1000 Iu)] Glucosamine Sulfate 500 mg PO DAILY 06/12/19 06/12/19 Multivitamins, Thera [Multivitamin 1 tab PO DAILY 06/12/19 06/12/19 (formulary)] [place]-3 Fatty Acids/Fish Oil [Fish 1 cap PO DAILY 06/12/19 06/12/19 Oil 1,000 mg Softgel] Tamsulosin HCl [Flomax] 0.4 mg PO HS 06/12/19 06/12/19 Previous Rx's Medication Instructions Recorded Cefuroxime Axetil [Ceftin] 500 mg PO BID 5 Days #10 tab 06/13/19 Enalapril [Vasotec] 10 mg PO DAILY #0 06/13/19 Allergies Allergy/AdvReac Type Severity Reaction Status Date / Time No Known Allergies Allergy Verified 06/19/19 17:33 Review of Systems ROS Statement: Those systems with pertinent positive or pertinent negative responses have been documented in the HPI. ROS Other: All systems not noted in ROS Statement are negative. Past Medical History Past Medical History: Hypertension, Supraventricular Tachycardia (SVT) Additional Past Medical History / Comment(s): BPH, ESPINOZA CATHETER INSERTED 06/06/19 FOR RETENTION AND DISCONTINUED AT [facility] eR 06/12/2019 AM. History of Any Multi-Drug Resistant Organisms: None Reported Past Surgical History: No Surgical Hx Reported Past Anesthesia/Blood Transfusion Reactions: No Reported Reaction Past Psychological History: Anxiety Smoking Status: Former smoker Past Alcohol Use History: None Reported Past Drug Use History: None Reported - Past Family History Father Additional Family Medical History / Comment(s): PROSTATE PROBLEMS. Mother Family Medical History: Cancer Additional Family Medical History / Comment(s): LIVER CANCER General Exam - General Exam Comments Initial Comments: GENERAL: Well-appearing, well-nourished and in no acute distress. HEAD: Atraumatic, normocephalic. EYES: Pupils equal round and reactive to light, extraocular movements intact, sclera anicteric, conjunctiva are normal. ENT: Moist mucous membranes. NECK: Normal range of motion, supple without lymphadenopathy or JVD. LUNGS: Breath sounds clear to auscultation bilaterally and equal. No wheezes rales or rhonchi. HEART: Regular rate and rhythm without murmurs, rubs or gallops. ABDOMEN: Mild tenderness to palpation suprapubic area before catheter was placed. Upon recheck after catheter placement, no abdominal pain. Soft, normoactive bowel sounds. No guarding, no rebound. No masses appreciated. : Deferred EXTREMITIES: Normal range of motion, no pitting or edema. No clubbing or cyanosis. SKIN: Warm, Dry, normal turgor, no rashes or lesions noted. Course Vital Signs 06/19/19 17:30 Temperature 98.1 F Pulse Rate 92 Respiratory 20 Rate Blood Pressure 175/84 O2 Sat by Pulse 97 Oximetry Medical Decision Making - Medical Decision Making Patient is a 73-year-old male presenting with urinary retention since this morning. Patient's catheter was pulled this morning by Dr. Black. Vital signs are stable. Catheter was inserted and over 500 mL of fluid restrained. UA shows no acute abnormalities. Patient will be discharged home with Espinoza and a leg bag. He is in agreement this plan of care. He does have an appointment with Dr. Black tomorrow. Return parameters were discussed with the patient he verbalizes understanding. Case discussed with Dr. Kirkland. - Lab Data Lab Results 06/19/19 Range/Units 18:04 Urine Color Light Yellow Urine Appearance Clear (Clear) Urine pH 6.0 (5.0-8.0) Ur Specific [place] 1.009 (1.001-1.035) Urine Protein Negative (Negative) Urine Glucose (UA) Negative (Negative) Urine Ketones Negative (Negative) Urine Blood Negative (Negative) Urine Nitrite Negative (Negative) Urine Bilirubin Negative (Negative) Urine Urobilinogen <2.0 (<2.0) mg/dL Ur Leukocyte Esterase Negative (Negative) Disposition Clinical Impression: Urinary retention Disposition: HOME SELF-CARE Condition: Stable Instructions (If sedation given, give patient instructions): Urinary Retention in Men (ED) Additional Instructions: Please return to the Emergency Department if symptoms worsen or any other concerns. Follow-up with your urologist as discussed. Is patient prescribed a controlled substance at d/c from ED?: No Referrals: Jami Stover MD [Primary Care Provider] - 1-2 days
[2019-06-19 17:33] VITALS: BP 175/84; PULSE 92; RESP 20; TEMP 98.1
[2019-06-19 18:27] LABS: Appearance,Urine Clear (Clear); Bilirubin,Urine Negative (Negative); Blood,Urine Negative (Negative); Color,Urine Light Yellow; Glucose,Urine (UA) Negative (Negative); Ketones,Urine Negative (Negative); Leukocyte Esterase,Urine Negative (Negative); Nitrite,Urine Negative (Negative); Protein,Urine Negative (Negative); Specific Gravity,Urine 1.009 (1.001-1.035); Urobilinogen,Urine <2.0 mg/dL (<2.0)
== END 2019-06-19 18:50 | disposition home or self-care (01) ==
LOC: EC 16:45
DX: N40.1 Benign prostatic hyperplasia with lower urinary tract symptoms (principal); R33.8 Other retention of urine; Z87.891 Personal history of nicotine dependence; Z79.899 Other long term (current) drug therapy; Z84.2 Family history of other diseases of the genitourinary system
CPT/HCPCS: 51702; 81003; 99283

== ENCOUNTER 2019-06-26 17:07 | Emergency (ER) | payer MEDICARE ==
[2019-06-26 17:30] VITALS: TEMP 98.2
--- NOTE | 2019-06-26 18:30 | ED ---
Male Urogenital HPI - General Chief complaint: Urogenital Stated complaint: urine retention Time Seen by Provider: 06/26/19 18:20 Source: patient Mode of arrival: ambulatory Limitations: no limitations - History of Present Illness Initial comments: 73-year-old male patient presents to the emergency department today for evaluation of urinary retention. Patient states his been having difficulty with urinary retention since June 08. At that time he was diagnosed with urinary tract infection. Patient states that he has had 2 catheters placed since that time due to obstruction. Patient did see his urologist today, to remove the catheter and were giving him a trial to see if he is able to urinate on his own. They will be scheduling for a TURP if he is unable to go. He denies any current fever or chills. He is reporting suprapubic pain and pressure. Patient denies any recent rash, shortness breath, chest pain, diarrhea, constipation, back pain, numbness, tingling, dizziness, weakness, headache, visual changes, or any other complaints. - Related Data Home Medications Medication Instructions Recorded Confirmed [place]-3 Fatty Acids/Fish Oil [Fish 1 cap PO DAILY 06/12/19 06/26/19 Oil 1,000 mg Softgel] Ascorbic Acid [Vitamin C] 500 mg PO DAILY 06/26/19 06/26/19 Enalapril Maleate [Vasotec] 20 mg PO BID 06/26/19 06/26/19 Garlic 1 tab PO DAILY 06/26/19 06/26/19 Glucosam/Mikael-Msm1/C/Gume/Bosw 1 tab PO DAILY 06/26/19 06/26/19 [Glucosamine-Chondroitin Tablet] Green Tea [place] Extract [Green Tea 150 mg PO DAILY 06/26/19 06/26/19 Extract] Krill Oil 500 mg PO DAILY 06/26/19 06/26/19 Multivit-Min/FA/Lycopen/Lutein 1 tab PO DAILY 06/26/19 06/26/19 [Centrum Silver Men Tablet] Tamsulosin HCl [Flomax] 0.4 mg PO BID 06/26/19 06/26/19 Turmeric Root Extract [Turmeric] 500 mg PO DAILY 06/26/19 06/26/19 Allergies Allergy/AdvReac Type Severity Reaction Status Date / Time No Known Allergies Allergy Verified 01/06/20 19:12 Review of Systems ROS Statement: Those systems with pertinent positive or pertinent negative responses have been documented in the HPI. ROS Other: All systems not noted in ROS Statement are negative. Past Medical History Past Medical History: Hypertension, Supraventricular Tachycardia (SVT) Additional Past Medical History / Comment(s): BPH, ESPINOZA CATHETER INSERTED 06/06/19 FOR RETENTION AND DISCONTINUED AT [facility] eR 06/12/2019 AM. History of Any Multi-Drug Resistant Organisms: None Reported Past Surgical History: No Surgical Hx Reported Past Anesthesia/Blood Transfusion Reactions: No Reported Reaction Past Psychological History: Anxiety Smoking Status: Former smoker Past Alcohol Use History: None Reported Past Drug Use History: None Reported - Past Family History Father Additional Family Medical History / Comment(s): PROSTATE PROBLEMS. Mother Family Medical History: Cancer Additional Family Medical History / Comment(s): LIVER CANCER General Exam Limitations: no limitations General appearance: alert, in no apparent distress, other (This is a well- developed, well-nourished adult male patient in no acute distress. Vital signs upon presentation are temperature 98.2F, pulse 97, respirations 17, blood pre ssure 161/95, pulse ox 98% on room air.) Eye exam: Present: normal appearance, PERRL, EOMI. Absent: scleral icterus, conjunctival injection, periorbital swelling ENT exam: Present: normal exam, normal oropharynx, mucous membranes moist Respiratory exam: Present: normal lung sounds bilaterally. Absent: respiratory distress, wheezes, rales, rhonchi, stridor Cardiovascular Exam: Present: regular rate, normal rhythm, normal heart sounds. Absent: systolic murmur, diastolic murmur, rubs, gallop, clicks GI/Abdominal exam: Present: soft, tenderness (Suprapubic), normal bowel sounds. Absent: distended, guarding, rebound, rigid Neurological exam: Present: alert, oriented X3, CN II-XII intact Psychiatric exam: Present: normal affect, normal mood Skin exam: Present: warm, dry, intact, normal color. Absent: rash Course Vital Signs 06/26/19 17:27 Temperature 98.2 F Pulse Rate 97 Respiratory 17 Rate Blood Pressure 161/95 O2 Sat by Pulse 98 Oximetry Medical Decision Making - Medical Decision Making 73-year-old male patient presents to the emergency department today for evalua tion of urinary retention. Bladder scan revealed 500 mL in the bladder. Espinoza catheter was inserted, he did have adequate output. We did send urinalysis which was negative for evidence of infection. We find up the urologist in the morning. Return parameters were discussed in detail. He verbalizes understanding and agrees with this plan. - Lab Data Lab Results 06/26/19 Range/Units 18:36 Urine Color Light Yellow Urine Appearance Clear (Clear) Urine pH 5.0 (5.0-8.0) Ur Specific [place] 1.008 (1.001-1.035) Urine Protein Negative (Negative) Urine Glucose (UA) Negative (Negative) Urine Ketones Negative (Negative) Urine Blood Trace H (Negative) Urine Nitrite Negative (Negative) Urine Bilirubin Negative (Negative) Urine Urobilinogen <2.0 (<2.0) mg/dL Ur Leukocyte Esterase Negative (Negative) Urine RBC 1 (0-5) /hpf Urine WBC 1 (0-5) /hpf Ur Squamous Epith Cells <1 (0-4) /hpf Urine Bacteria Rare H (None) /hpf Urine Mucus Rare H (None) /hpf Disposition Clinical Impression: Urinary retention Disposition: HOME SELF-CARE Condition: Good Instructions (If sedation given, give patient instructions): Urinary Retention in Men (ED), Espinoza Catheter Placement and Care (ED) Additional Instructions: Follow-up with your urologist Cortney osborne. Return to the emergency department immediately for any new, worsening, or concerning symptoms. Is patient prescribed a controlled substance at d/c from ED?: No Referrals: Jami Stover MD [Primary Care Provider] - 1-2 days Time of Disposition: 19:27
[2019-06-26 19:03] LABS: Appearance,Urine Clear (Clear); Bacteria,Urine Rare /hpf; Bilirubin,Urine Negative (Negative); Blood,Urine Trace (Negative); Color,Urine Light Yellow; Glucose,Urine (UA) Negative (Negative); Ketones,Urine Negative (Negative); Leukocyte Esterase,Urine Negative (Negative); Mucus,Urine Rare /hpf; Nitrite,Urine Negative (Negative); Protein,Urine Negative (Negative); RBC,Urine 1 /hpf (0-5); Specific Gravity,Urine 1.008 (1.001-1.035); Squamous Epithelial Cell,Urine <1 /hpf (0-4); Urobilinogen,Urine <2.0 mg/dL (<2.0); WBC,Urine 1 /hpf (0-5)
[2019-06-26 19:51] VITALS: BP 120/73; PULSE 91; RESP 18
== END 2019-06-26 19:51 | disposition home or self-care (01) ==
LOC: EC 17:07
DX: N40.1 Benign prostatic hyperplasia with lower urinary tract symptoms (principal); R33.8 Other retention of urine; I10 Essential (primary) hypertension; Z87.891 Personal history of nicotine dependence; Z79.899 Other long term (current) drug therapy; Z84.2 Family history of other diseases of the genitourinary system
CPT/HCPCS: 51702; 81001; 99284